=== PATIENT | male | born 1955 | race African-American/Black ===

== ENCOUNTER 2020-05-16 04:21 | Inpatient (IN) | payer OTHER ==
[2020-05-09 11:26] VITALS: BMI 29.0
[2020-05-16] MEDS ORDERED: THROMBIN (BOVINE) 5,000 UNIT VIAL TP ONE ×3 (07:17→09:58)
[2020-05-16] MEDS ORDERED: HEPARIN NA (PORCINE) 5,000 UNITS/ML 1ML VIAL ONE ×2 (07:17→09:53)
[2020-05-16] MEDS ORDERED: BUPIVACAINE LIPOSOME/PF (EXPAREL) 266 MG/20 ML VIAL ONE (07:17)
[2020-05-16] MEDS ORDERED: BENZOIN/ALOE VERA/STORAX/TOLU 58 ML BOTTLE ONE (07:50)
[2020-05-16] MEDS ORDERED: MIDAZOLAM HCL 2 MG/2 ML SINGLE DOSE VIAL ONE (07:55)
[2020-05-16] MEDS ORDERED: SUCCINYLCHOLINE CHLORIDE 200 MG/10 ML SYRINGE ONE (07:56)
[2020-05-16] MEDS ORDERED: fentaNYL CITRATE 250 MCG/5 ML VIAL ONE (07:56)
[2020-05-16] MEDS ORDERED: PROPOFOL 20 ML ONE ×18 (07:56→12:28)
[2020-05-16] MEDS ORDERED: ROCURONIUM BROMIDE 50 MG/5 ML SYRINGE ONE (07:56)
[2020-05-16] MEDS ORDERED: morphine SULFATE/PF 1 MG/2 ML (2cc Syringe - QUVA) ONE (07:56)
[2020-05-16] MEDS ORDERED: ceFAZolin SODIUM 1 GM VIAL IVPB ONE (08:45)
[2020-05-16] MEDS ORDERED: VANCOMYCIN 1,000 MG VIAL (RESTRICTED TO ID ONLY) IVPB ONE (08:50)
[2020-05-16] MEDS ORDERED: GELATIN, ABSORBABLE 100 EACH SPONGE TP ONE (09:58)
[2020-05-16] MEDS ORDERED: BUPIVACAINE LIPOSOME/PF (EXPAREL) 266 MG/20 ML VIAL NR ONE (12:30)
[2020-05-16] MEDS ORDERED: BUPIVACAINE HCL/PF 0.5% (5 MG/ML) 30 ML VIAL IJ ONE (12:30)
[2020-05-16] MEDS ORDERED: LIDOCAINE HCL 2% JELLY (5 ML/TUBE) ONE (13:28)
[2020-05-16] MEDS ORDERED: ceFAZolin SODIUM 1 GM VIAL ONE ×2 (13:28→19:42)
[2020-05-16] MEDS ORDERED: ONDANSETRON 4 MG/2 ML VIAL ONE (13:28)
[2020-05-16] MEDS ORDERED: VANCOMYCIN 1,000 MG VIAL (RESTRICTED TO ID ONLY) ONE (13:28)
[2020-05-16] MEDS ORDERED: DEXAMETHASONE SOD PHOSPHATE 4 MG/1 ML VIAL ONE (13:28)
[2020-05-16] MEDS ORDERED: TRANEXAMIC ACID 1000 MG/10 ML VIAL ONE (13:28)
[2020-05-16] MEDS ORDERED: LIDOCAINE HCL/PF 2% SDV 5ML VIAL ONE (13:28)
[2020-05-16] MEDS ORDERED: ONDANSETRON 4 MG/2 ML VIAL IVPUSH PRN ×2 (14:11→14:12)
[2020-05-16] MEDS ORDERED: diazePAM CARPU-JECT 10 MG/2 ML DISP.SYRIN IVPUSH PRN (14:12)
[2020-05-16] MEDS ORDERED: oxyCODONE HCL 5 MG TABLET PO PRN ×2 (14:12)
[2020-05-16] MEDS ORDERED: LACTATED RINGERS SOLUTION 1,000 ML IV SCH (14:15)
[2020-05-16] MEDS ORDERED: ACETAMINOPHEN INJECTION 100 ML IVPB ONE (14:39)
[2020-05-16] MEDS: ACETAMINOPHEN 1000 MG/100 ML BAG IVPB PRN (14:45)
[2020-05-16] MEDS ORDERED: HYDROmorphone HCl 2 MG/ML VIAL ONE (16:18)
[2020-05-16] MEDS: HYDROmorphone HCL CARPU-JECT 2 MG/1 ML DISP.SYRIN IVPUSH PRN ×2 (16:30→21:00)
[2020-05-16] MEDS: CEFAZOLIN 2 GM/D5W 2 GM/50 ML ML IVPB SCH ×2 (19:45)
[2020-05-16] MEDS ORDERED: HYDROmorphone HCl 2 MG/ML VIAL IVPUSH PRN (22:49)
[2020-05-17] MEDS: ACETAMINOPHEN 1000 MG/100 ML BAG IVPB PRN ×2 (00:21→20:29)
[2020-05-17] MEDS: HYDROmorphone HCl 2 MG/ML VIAL SQ PRN ×4 (01:18→21:50)
[2020-05-17] MEDS: CEFAZOLIN 2 GM/D5W 2 GM/50 ML ML IVPB SCH ×3 (02:20→06:53)
[2020-05-17] MEDS: LACTATED RINGERS SOLUTION 1,000 ML IV SCH ×4 (02:28→21:46)
[2020-05-17 08:38] LABS: HEMOGLOBIN 12.3 GM/dL (11.7-16.9); MCH 31.7 pg (25.7-33.7); MCHC 33.3 g/dl (32.0-35.9); MEAN PLT VOLUME 8.5 fl (7.5-11.1); PLATELET COUNT 233 K/MM3 (134-434); RDW 13.9 % (11.9-15.9); WHITE BLOOD COUNT 25.4 K/mm3 (4.0-10.0)
[2020-05-17 09:10] LABS: BLOOD UREA NITROGEN 14.4 mg/dL (7-18); CALCIUM 7.8 mg/dL (8.5-10.1)
[2020-05-17 09:13] LABS: CREATININE 0.8 mg/dL (0.55-1.3)
[2020-05-17] MEDS ORDERED: PATIENT'S OWN MEDICATION (NON-FORMULARY) (Amlodipine Besylate/Benazepril [Lotrel 10-20 Mg PO SCH (10:00)
[2020-05-17] MEDS ORDERED: FLU VACCINE (FLULAVAL) PF 60 MCG/0.5 ML SYRINGE 2020-2021 IM ONE (11:28)
[2020-05-17] MEDS: amLODIPine BESYLATE 10 MG TABLET (FP) PO SCH (11:41)
[2020-05-17] MEDS: LISINOPRIL 20 MG TABLET PO SCH (11:42)
[2020-05-18 04:37] LABS: MAGNESIUM 1.7 mg/dL (1.8-2.4)
[2020-05-18 04:38] LABS: ALBUMIN 3.2 g/dl (3.4-5.0)
[2020-05-18 04:43] LABS: TOT PROT 6.1 g/dl (6.4-8.2)
[2020-05-18] MEDS: LACTATED RINGERS SOLUTION 1,000 ML IV SCH ×2 (06:12→14:03)
[2020-05-18] MEDS: HYDROmorphone HCl 2 MG/ML VIAL SQ PRN ×4 (06:13→23:03)
[2020-05-18] MEDS: ACETAMINOPHEN 1000 MG/100 ML BAG IVPB PRN (09:54)
[2020-05-18] MEDS: LISINOPRIL 20 MG TABLET PO SCH (09:56)
[2020-05-18] MEDS: amLODIPine BESYLATE 10 MG TABLET (FP) PO SCH (09:56)
[2020-05-18] MEDS: POLYETHYLENE GLYCOL 3350 119 GM BTL PO SCH (09:57)
[2020-05-18 16:09] LABS: BASO % 0.2 % (0-2.0); HEMATOCRIT 33.8 % (35.4-49); HEMOGLOBIN 11.3 GM/dL (11.7-16.9); LYMPH % 8.6 % (8-40); MCH 31.4 pg (25.7-33.7); MCHC 33.3 g/dl (32.0-35.9); MEAN CELL VOLUME 94.4 fl (80-96); MEAN PLT VOLUME 8.6 fl (7.5-11.1); NEUT % 79.2 % (42.8-82.8); PLATELET COUNT 228 K/MM3 (134-434); RBC 3.58 M/mm3 (4.00-5.60); RDW 13.6 % (11.9-15.9); WHITE BLOOD COUNT 25.8 K/mm3 (4.0-10.0)
[2020-05-18 17:31] LABS: ANISOCYTOSIS 0; MACROCYTOSIS 0; PLATELET ESTIMATE NORMAL
[2020-05-18] MEDS: DOCUSATE SODIUM 100 MG CAPSULE (FP) PO SCH (23:02)
[2020-05-19] MEDS: HYDROmorphone HCl 2 MG/ML VIAL SQ PRN ×4 (05:51→23:18)
[2020-05-19] MEDS ORDERED: PIPERACILLIN/TAZOB 4.5 GM 4.5 GM in DEXTROSE 5%-WATER 100 ML IVPB ONE (07:30)
[2020-05-19] MEDS ORDERED: PIPERACILLIN/TAZOBACTAM 4.5 GM VIAL IVPB ONE (08:50)
[2020-05-19] MEDS ORDERED: DEXTROSE 5%-WATER 100 ML IVPB ONE (08:50)
[2020-05-19 09:00] LABS: BASO % 0.2 % (0-2.0); EOS % 0.6 % (0-4.5); HEMATOCRIT 33.7 % (35.4-49); HEMOGLOBIN 11.5 GM/dL (11.7-16.9); LYMPH % 11.6 % (8-40); MCHC 34.1 g/dl (32.0-35.9); MEAN CELL VOLUME 93.8 fl (80-96); MEAN PLT VOLUME 8.6 fl (7.5-11.1); MONO % 13.2 % (3.8-10.2); NEUT % 74.4 % (42.8-82.8); PLATELET COUNT 246 K/MM3 (134-434); RBC 3.59 M/mm3 (4.00-5.60); RDW 13.6 % (11.9-15.9); WHITE BLOOD COUNT 23.1 K/mm3 (4.0-10.0)
[2020-05-19] MEDS ORDERED: VANCOMYCIN HCL 1,500 MG in DEXTROSE 5%-WATER - 500 ML IVPB ONE (09:00)
[2020-05-19] MEDS: ACETAMINOPHEN 1000 MG/100 ML BAG IVPB PRN (09:00)
[2020-05-19] MEDS: POLYETHYLENE GLYCOL 3350 119 GM BTL PO SCH (09:02)
[2020-05-19] MEDS: LISINOPRIL 20 MG TABLET PO SCH (09:02)
[2020-05-19] MEDS: amLODIPine BESYLATE 10 MG TABLET (FP) PO SCH (09:02)
[2020-05-19 10:28] LABS: EPI CELLS 8 /uL (0-25.1); HYALINE CASTS 1 /uL (0-3.1); URINE APPEARANCE CLEAR; URINE BACTERIA 2 /uL (0-1359); URINE BILIRUBIN NEGATIVE (NEGATIVE); URINE COLOR YELLOW; URINE GLUCOSE (UA) NEGATIVE (NEGATIVE); URINE KETONE 2+ (NEGATIVE); URINE LEUK ESTERASE NEGATIVE (NEGATIVE); URINE NITRITE NEGATIVE (NEGATIVE); URINE PROTEIN NEGATIVE (NEGATIVE); URINE RBC 152 /uL (0-23.9); URINE WBC 10 /uL (0-25.8)
[2020-05-19 11:50] LABS: ANISOCYTOSIS 1+; MACROCYTOSIS 0; PLATELET ESTIMATE NORMAL
[2020-05-19] MEDS: LACTATED RINGERS SOLUTION 1,000 ML IV SCH (17:07)
[2020-05-19] MEDS ORDERED: PIPERACILLIN/TAZOBACTAM 3.375 GM VIAL IVPB ONE (20:16)
[2020-05-19] MEDS ORDERED: DEXTROSE 5%-WATER - 50 ML IVPB ONE (20:16)
[2020-05-19] MEDS: PIPERACILLIN/TAZOB 3.375 GM 3.375 GM in DEXTROSE 5%-WATER - 50 ML IVPB SCH (20:23)
[2020-05-19] MEDS: DOCUSATE SODIUM 100 MG CAPSULE (FP) PO SCH (21:35)
[2020-05-19] MEDS: VANCOMYCIN 1 GRAM (PRE-DOCKED) 1,000 MG/250 ML BAG IVPB SCH (23:10)
[2020-05-20] MEDS ORDERED: PIPERACILLIN/TAZOBACTAM 3.375 GM VIAL IVPB ONE ×3 (01:07→17:38)
[2020-05-20] MEDS ORDERED: DEXTROSE 5%-WATER - 50 ML IVPB ONE ×3 (01:07→17:38)
[2020-05-20] MEDS: PIPERACILLIN/TAZOB 3.375 GM 3.375 GM in DEXTROSE 5%-WATER - 50 ML IVPB SCH ×3 (01:20→17:50)
[2020-05-20] MEDS: HYDROmorphone HCl 2 MG/ML VIAL SQ PRN ×3 (05:54→17:47)
[2020-05-20 10:18] LABS: BASO % 0.5 % (0-2.0); EOS % 1.6 % (0-4.5); HEMATOCRIT 32.1 % (35.4-49); HEMOGLOBIN 10.8 GM/dL (11.7-16.9); LYMPH % 10.1 % (8-40); MCH 31.8 pg (25.7-33.7); MCHC 33.7 g/dl (32.0-35.9); MEAN CELL VOLUME 94.3 fl (80-96); MEAN PLT VOLUME 9.1 fl (7.5-11.1); MONO % 10.4 % (3.8-10.2); NEUT % 77.4 % (42.8-82.8); PLATELET COUNT 309 K/MM3 (134-434); RBC 3.41 M/mm3 (4.00-5.60); RDW 13.4 % (11.9-15.9); WHITE BLOOD COUNT 18.7 K/mm3 (4.0-10.0)
[2020-05-20] MEDS: VANCOMYCIN 1 GRAM (PRE-DOCKED) 1,000 MG/250 ML BAG IVPB SCH ×2 (10:38→22:19)
[2020-05-20] MEDS: POLYETHYLENE GLYCOL 3350 119 GM BTL PO SCH (10:38)
[2020-05-20] MEDS: amLODIPine BESYLATE 10 MG TABLET (FP) PO SCH (10:38)
[2020-05-20] MEDS: LISINOPRIL 20 MG TABLET PO SCH (10:38)
[2020-05-20 10:46] LABS: ALBUMIN 2.8 g/dl (3.4-5.0); MAGNESIUM 2.2 mg/dL (1.8-2.4)
[2020-05-20 10:47] LABS: CALCIUM 8.3 mg/dL (8.5-10.1)
[2020-05-20 10:50] LABS: CREATININE 0.8 mg/dL (0.55-1.3)
[2020-05-20 10:51] LABS: BILIRUBIN,TOTAL 1.2 mg/dL (0.2-1); TOT PROT 6.1 g/dl (6.4-8.2)
[2020-05-20] MEDS: DOCUSATE SODIUM 100 MG CAPSULE (FP) PO SCH (21:13)
[2020-05-21] MEDS ORDERED: PIPERACILLIN/TAZOBACTAM 3.375 GM VIAL IVPB ONE ×3 (01:19→17:09)
[2020-05-21] MEDS ORDERED: DEXTROSE 5%-WATER - 50 ML IVPB ONE ×3 (01:19→17:10)
[2020-05-21] MEDS: PIPERACILLIN/TAZOB 3.375 GM 3.375 GM in DEXTROSE 5%-WATER - 50 ML IVPB SCH ×3 (01:27→17:22)
[2020-05-21] MEDS: HYDROmorphone HCl 2 MG/ML VIAL SQ PRN ×2 (04:45→11:18)
[2020-05-21 08:48] LABS: BASO % 0.6 % (0-2.0); EOS % 3.8 % (0-4.5); HEMATOCRIT 32.8 % (35.4-49); HEMOGLOBIN 11.1 GM/dL (11.7-16.9); LYMPH % 11.9 % (8-40); MCH 32.2 pg (25.7-33.7); MEAN CELL VOLUME 94.9 fl (80-96); MEAN PLT VOLUME 8.3 fl (7.5-11.1); MONO % 11.6 % (3.8-10.2); NEUT % 72.1 % (42.8-82.8); PLATELET COUNT 369 K/MM3 (134-434); RBC 3.46 M/mm3 (4.00-5.60); RDW 13.4 % (11.9-15.9); WHITE BLOOD COUNT 17.6 K/mm3 (4.0-10.0)
[2020-05-21 09:19] LABS: CALCIUM 8.1 mg/dL (8.5-10.1)
[2020-05-21 09:20] LABS: ALBUMIN 2.7 g/dl (3.4-5.0); BLOOD UREA NITROGEN 11.3 mg/dL (7-18); MAGNESIUM 2.3 mg/dL (1.8-2.4)
[2020-05-21 09:23] LABS: CREATININE 0.8 mg/dL (0.55-1.3)
[2020-05-21] MEDS ORDERED: PT OWN MED DRAWER 7, Y5N ONE ×3 (09:23→22:50)
[2020-05-21 09:24] LABS: BILIRUBIN,TOTAL 0.9 mg/dL (0.2-1); TOT PROT 6.1 g/dl (6.4-8.2)
[2020-05-21] MEDS: POLYETHYLENE GLYCOL 3350 119 GM BTL PO SCH (09:31)
[2020-05-21] MEDS: amLODIPine BESYLATE 10 MG TABLET (FP) PO SCH (09:32)
[2020-05-21] MEDS: LISINOPRIL 20 MG TABLET PO SCH (09:33)
[2020-05-21] MEDS: VANCOMYCIN 1 GRAM (PRE-DOCKED) 1,000 MG/250 ML BAG IVPB SCH ×2 (11:13→22:58)
[2020-05-21] MEDS: BACITRACIN 15 GM TUBE TOPICAL OINTMENT TP SCH ×2 (11:20→21:09)
[2020-05-21] MEDS ORDERED: ACETAMINOPHEN 1000 MG/100 ML BAG IVPB PRN (18:15)
[2020-05-21] MEDS ORDERED: ACETAMINOPHEN 325 MG TABLET (FP) PO PRN (18:16)
[2020-05-21] MEDS: DOCUSATE SODIUM 100 MG CAPSULE (FP) PO SCH (21:09)
[2020-05-21] MEDS: oxyCODONE HCL 5 MG TABLET PO PRN (21:09)
[2020-05-22] MEDS: oxyCODONE HCL 5 MG TABLET PO PRN ×3 (01:45→21:12)
[2020-05-22 08:18] LABS: BASO % 0.4 % (0-2.0); HEMATOCRIT 34.8 % (35.4-49); HEMOGLOBIN 11.8 GM/dL (11.7-16.9); LYMPH % 11.4 % (8-40); MCH 31.8 pg (25.7-33.7); MCHC 33.9 g/dl (32.0-35.9); MEAN CELL VOLUME 93.7 fl (80-96); MEAN PLT VOLUME 7.5 fl (7.5-11.1); MONO % 9.4 % (3.8-10.2); NEUT % 74.8 % (42.8-82.8); PLATELET COUNT 466 K/MM3 (134-434); RBC 3.72 M/mm3 (4.00-5.60); RDW 13.8 % (11.9-15.9); WHITE BLOOD COUNT 18.6 K/mm3 (4.0-10.0)
[2020-05-22 08:40] LABS: CALCIUM 8.5 mg/dL (8.5-10.1)
[2020-05-22 08:41] LABS: ALBUMIN 2.8 g/dl (3.4-5.0); BLOOD UREA NITROGEN 11.2 mg/dL (7-18)
[2020-05-22 08:44] LABS: CREATININE 0.8 mg/dL (0.55-1.3)
[2020-05-22 08:45] LABS: BILIRUBIN,TOTAL 0.7 mg/dL (0.2-1); TOT PROT 6.4 g/dl (6.4-8.2)
[2020-05-22] MEDS ORDERED: PT OWN MED DRAWER 7, Y5N ONE (10:38)
[2020-05-22] MEDS: POLYETHYLENE GLYCOL 3350 119 GM BTL PO SCH (10:41)
[2020-05-22] MEDS: LISINOPRIL 20 MG TABLET PO SCH (10:42)
[2020-05-22] MEDS: BACITRACIN 15 GM TUBE TOPICAL OINTMENT TP SCH ×2 (10:42→21:11)
[2020-05-22] MEDS: amLODIPine BESYLATE 10 MG TABLET (FP) PO SCH (10:42)
[2020-05-22] MEDS: DOCUSATE SODIUM 100 MG CAPSULE (FP) PO SCH (21:12)
[2020-05-23 08:24] LABS: BASO % 0.6 % (0-2.0); EOS % 3.5 % (0-4.5); HEMOGLOBIN 11.6 GM/dL (11.7-16.9); LYMPH % 9.8 % (8-40); MCH 32.2 pg (25.7-33.7); MCHC 34.1 g/dl (32.0-35.9); MEAN CELL VOLUME 94.3 fl (80-96); MEAN PLT VOLUME 7.8 fl (7.5-11.1); MONO % 9.4 % (3.8-10.2); NEUT % 76.7 % (42.8-82.8); PLATELET COUNT 513 K/MM3 (134-434); RDW 13.3 % (11.9-15.9); WHITE BLOOD COUNT 19.7 K/mm3 (4.0-10.0)
[2020-05-23 08:49] LABS: CALCIUM 8.3 mg/dL (8.5-10.1)
[2020-05-23 08:50] LABS: ALBUMIN 2.9 g/dl (3.4-5.0); BLOOD UREA NITROGEN 16.4 mg/dL (7-18)
[2020-05-23 08:53] LABS: CREATININE 0.7 mg/dL (0.55-1.3)
[2020-05-23 08:55] LABS: BILIRUBIN,TOTAL 0.9 mg/dL (0.2-1); TOT PROT 6.6 g/dl (6.4-8.2)
[2020-05-23] MEDS: LISINOPRIL 20 MG TABLET PO SCH (11:48)
[2020-05-23] MEDS: amLODIPine BESYLATE 10 MG TABLET (FP) PO SCH (11:48)
[2020-05-23] MEDS: POLYETHYLENE GLYCOL 3350 119 GM BTL PO SCH (11:48)
[2020-05-23] MEDS: BACITRACIN 15 GM TUBE TOPICAL OINTMENT TP SCH ×2 (11:50→22:15)
[2020-05-23] MEDS: GABAPENTIN 100 MG CAPSULE PO SCH ×2 (14:42→22:14)
[2020-05-23] MEDS ORDERED: PT OWN MED DRAWER 7, Y5N ONE ×2 (16:23→22:07)
[2020-05-23] MEDS: CELECOXIB 200 MG CAPSULE PO SCH ×2 (16:33→23:20)
[2020-05-23] MEDS: oxyCODONE HCL 5 MG TABLET PO PRN (22:14)
[2020-05-23] MEDS: DOCUSATE SODIUM 100 MG CAPSULE (FP) PO SCH (22:15)
[2020-05-24] MEDS: GABAPENTIN 100 MG CAPSULE PO SCH ×2 (06:15→14:05)
[2020-05-24] MEDS ORDERED: PT OWN MED DRAWER 7, Y5N ONE (09:43)
[2020-05-24] MEDS: CELECOXIB 200 MG CAPSULE PO SCH (10:15)
[2020-05-24] MEDS: LISINOPRIL 20 MG TABLET PO SCH (10:15)
[2020-05-24] MEDS: amLODIPine BESYLATE 10 MG TABLET (FP) PO SCH (10:15)
[2020-05-24] MEDS: POLYETHYLENE GLYCOL 3350 119 GM BTL PO SCH (10:15)
[2020-05-24] MEDS: oxyCODONE HCL 5 MG TABLET PO PRN (10:17)
[2020-05-24 15:39] VITALS: BP 108/66; PULSE 72; TEMP 98.4
== END 2020-05-24 17:08 | DRG 304 ==
LOC: J2C 04:21 → J8W 23:20
PROVIDERS: ADMIT Orthopaedic Surgery Orthopaedic Surgery of the Spine; ATTEND Nurse Practitioner Family
PROC: 0SG007J Fusion of Lumbar Vertebral Joint with Autologous Tissue Substitute, Posterior Approach, Anterior Column, Open Approach (ICD-10-PCS; 2020-05-16)
PROC: 0QB00ZZ Excision of Lumbar Vertebra, Open Approach (ICD-10-PCS; 2020-05-16)
PROC: 01NB0ZZ Release Lumbar Nerve, Open Approach (ICD-10-PCS; 2020-05-16)
PROC: 0SS00ZZ Reposition Lumbar Vertebral Joint, Open Approach (ICD-10-PCS; 2020-05-16)
PROC: 0SG30AJ Fusion of Lumbosacral Joint with Interbody Fusion Device, Posterior Approach, Anterior Column, Open Approach (ICD-10-PCS; 2020-05-16)
PROC: 0SG3071 Fusion of Lumbosacral Joint with Autologous Tissue Substitute, Posterior Approach, Posterior Column, Open Approach (ICD-10-PCS; 2020-05-16)
PROC: 0SB40ZZ Excision of Lumbosacral Disc, Open Approach (ICD-10-PCS; 2020-05-16)
PROC: 0SS Lower Joints, Reposition (ICD-10-PCS; 2020-05-16)
PROC: B01BZZZ Fluoroscopy of Spinal Cord (ICD-10-PCS; 2020-05-16)
PROC: 4A1004G Monitoring of Central Nervous Electrical Activity, Intraoperative, Open Approach (ICD-10-PCS; 2020-05-16)
PROC: 07DR3ZZ Extraction of Iliac Bone Marrow, Percutaneous Approach (ICD-10-PCS; 2020-05-16)
PROC: 0SG10AJ Fusion of 2 or more Lumbar Vertebral Joints with Interbody Fusion Device, Posterior Approach, Anterior Column, Open Approach (ICD-10-PCS; principal; 2020-05-16 08:00)
DX: M51.16 Intervertebral disc disorders with radiculopathy, lumbar region (principal); M51.17 Intervertebral disc disorders with radiculopathy, lumbosacral region; M48.062 Spinal stenosis, lumbar region with neurogenic claudication; M48.07 Spinal stenosis, lumbosacral region; M47.897 Other spondylosis, lumbosacral region; I10 Essential (primary) hypertension; D72.829 Elevated white blood cell count, unspecified; R52 Pain, unspecified; R50.82 Postprocedural fever; F17.210 Nicotine dependence, cigarettes, uncomplicated; R22.0 Localized swelling, mass and lump, head
CPT/HCPCS: 36415; 71045-TC-FY; 72100-TC-FY; 76000-TC-FY; 80048; 80053; 81003; 83735; 85025; 85027; 86922; 87040; 87086; 88304-TC; 94010; 94760; 97116-GP; 97162-GP; C9803; G0480; J0131; J1644; U0003